=== PATIENT | female | born 1980 | race Caucasian/White ===

== ENCOUNTER 2019-07-24 11:14 | Emergency (ER) | payer MEDICAID ==
[2019-07-24] MEDS ORDERED: Cyclobenzaprine 10 MG Tab PO ONE (11:52)
[2019-07-24] MEDS ORDERED: Ketorolac 60 MG/2 ML SDV IM ONE (11:52)
--- NOTE | 2019-07-24 11:57 | EDM.PDOC ---
ED HPI GENERAL MEDICAL PROBLEM - General Chief Complaint: Back Pain or Injury Stated Complaint: BACK SPASMS Time Seen by Provider: 07/24/19 11:33 Source of Information: Reports: Patient History Limitations: Reports: No Limitations - History of Present Illness INITIAL COMMENTS - FREE TEXT/NARRATIVE: Patient is a 39-year-old female who presents with complaints of low back pain and spasms since Wednesday. She states she was lifting a laundry basket at work when the pain began. She has no chronic back problems and has never had any surgeries. She denies any paresthesias to her legs or bowel or bladder dysfunction. She has taken [id number] ibuprofen for the pain however she states this isn't giving her much relief. 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: NSAIDS Bilateral Lower Back Pain Score (Numeric/FACES): 7 - Related Data Allergies Allergy/AdvReac Type Severity Reaction Status Date / Time No Known Allergies Allergy Verified 07/24/19 11:34 Home Meds: Home Meds Cyclobenzaprine [Flexeril] 10 mg PO TID PRN #10 tab 07/24/19 [Rx] Naproxen [Naprosyn] 500 mg PO Q12HR 5 Days #10 tab 07/24/19 [Rx] Past Medical History - Past Health History Medical/Surgical History: Denies Medical/Surgical History Social & Family History - Family History Family Medical History: Noncontributory - Tobacco Use Smoking Status *Q: Current Every Day Smoker Years of Tobacco use: 10 Packs/Tins Daily: 0.3 - Caffeine Use Caffeine Use: Reports: Coffee - Recreational Drug Use Recreational Drug Use: No ED ROS GENERAL - Review of Systems Review Of Systems: See Below Constitutional: Reports: No Symptoms HEENT: Reports: No Symptoms Respiratory: Reports: No Symptoms Cardiovascular: Reports: No Symptoms Endocrine: Reports: No Symptoms GI/Abdominal: Reports: No Symptoms : Reports: No Symptoms Musculoskeletal: Reports: Back Pain (Lumbar) Skin: Reports: No Symptoms Neurological: Reports: No Symptoms. Denies: Paresthesia, Difficulty Walking, Gait Disturbance Psychiatric: Reports: No Symptoms Hematologic/Lymphatic: Reports: No Symptoms Immunologic: Reports: No Symptoms ED EXAM,LOWER BACK PAIN/INJURY - Physical Exam Exam: See Below Exam Limited By: No Limitations General Appearance: Alert, WD/WN, No Apparent Distress Respiratory/Chest: No Respiratory Distress, Lungs Clear, Normal Breath Sounds, No Accessory Muscle Use, Chest Non-Tender Cardiovascular: Normal Peripheral Pulses, Regular Rate, Rhythm, No Edema, No Murmur Back Exam: Normal Inspection, Decreased Range of Motion, Paraspinal Tenderness, Vertebral Tenderness (L3 - S3) Extremities: Normal Inspection, Normal Range of Motion Neurological: Alert, Normal Mood/Affect, No Motor/Sensory Deficits, Oriented x 3 Psychiatric: Normal Affect, Normal Mood Skin Exam: Warm, Dry, Intact, Normal Color, No Rash Lymphatic: No Adenopathy Course - Vital Signs Last Recorded V/S: Last Vital Signs Temp 97.3 F 07/24/19 11:31 Pulse 76 07/24/19 11:31 Resp 18 07/24/19 11:31 BP 117/84 07/24/19 11:31 Pulse Ox 99 07/24/19 11:31 - Orders/Labs/Meds Orders: Active Orders 24 hr Category Date Time Status Lumbar Spine 2 or 3V [CR] Stat Exams 07/24/19 11:52 Taken Meds: Medications Discontinued Medications Generic Name Dose Route Start Last Admin Trade Name Castro PRN Reason Stop Dose Admin Cyclobenzaprine HCl 10 mg 07/24/19 11:52 07/24/19 12:14 Flexeril PO 07/24/19 11:53 10 mg ONETIME ONE Administration Ketorolac Tromethamine 60 mg 07/24/19 11:52 07/24/19 12:14 Toradol IM 07/24/19 11:53 60 mg ONETIME ONE Administration - Re-Assessments/Exams Free Text/Narrative Re-Assessment/Exam: 07/24/19 12:27 X-ray of the lumbar spine shows no bony abnormalities. I will send a prescription for Flexeril and Naprosyn. I'll write the patient a note off from work through . Discharge instructions as noted. Departure - Departure Time of Disposition: 12:27 Disposition: Home, Self-Care 01 Condition: Fair Clinical Impression: Lumbar strain Qualifiers: Encounter type: initial encounter Qualified Code(s): S39.012A - Strain of muscle, fascia and tendon of lower back, initial encounter - Discharge Information *PRESCRIPTION DRUG MONITORING PROGRAM REVIEWED*: No *COPY OF PRESCRIPTION DRUG MONITORING REPORT IN PATIENT JOSH: No Prescriptions: Naproxen [Naprosyn] 500 mg PO Q12HR 5 Days #10 tab Cyclobenzaprine [Flexeril] 10 mg PO TID PRN #10 tab PRN Reason: Muscle Spasm Instructions: Low Back Sprain Referrals: Yoselin Rosales NP [Primary Care Provider] - Forms: ED Department Discharge, ED Return to Work/School Form Additional Instructions: You were seen in the emergency department for low back pain after lifting at work. Your exam and x-rays consistent with a low back muscle strain. A prescription for Flexeril and naproxen has been sent to [facility] in [facility]. Use these as prescribed. He may use heat or ice to the area for comfort. A note has been provided off through of this week. We recommend that you remain active, but refrain from heavy lifting. If your symptoms are not improving as expected, we do recommend that you follow up with your primary care provider. If you should develop any new or worsening symptoms, please not hesitate to return to the emergency department. Sepsis Event Note - Evaluation Sepsis Screening Result: No Definite Risk - Focused Exam Vital Signs: Vital Signs Temp Pulse Resp BP Pulse Ox 07/24/19 11:31 97.3 F 76 18 117/84 99 Date Exam was Performed: 07/24/19 Time Exam was Performed: 12:45 - My Orders Last 24 Hours: My Active Orders 07/24/19 11:52 Lumbar Spine 2 or 3V [CR] Stat - Assessment/Plan Last 24 Hours: My Active Orders 07/24/19 11:52 Lumbar Spine 2 or 3V [CR] Stat
--- NOTE | 2019-07-24 12:46 | CR ---
Lumbar spine: AP, lateral and cone-down lateral views centered to the lumbosacral junction were obtained. Comparison: No prior lumbar spine imaging. Minimal scoliosis is noted believed to be incidental. Vertebral body heights and disc spaces are maintained. Sacroiliac joints are within normal limits. No fracture or subluxation is seen. Impression: 1. No abnormality is appreciated on three-view lumbar spine exam. Diagnostic code #2 This report was dictated in [place] Standard Time
== END 2019-07-24 12:47 | disposition home or self-care (01) ==
LOC: JD.ED 11:14
DX: S39.012A Strain of muscle, fascia and tendon of lower back, initial encounter (principal); F17.210 Nicotine dependence, cigarettes, uncomplicated; X50.0XXA Overexertion from strenuous movement or load, initial encounter; Y99.0 Civilian activity done for income or pay
CPT/HCPCS: 72100; 96372; 99283; A9270; J1885